=== PATIENT | female | born 1960 | race Caucasian/White ===

== ENCOUNTER 2017-09-25 18:17 | Observation (INO) | payer MEDICARE, OTHER ==
[2017-09-25 20:08] LABS: ABSOLUTE BASOPHILS # (AUTO) 0.1 10^3/uL (0.0-0.2); ABSOLUTE EOSINOPHILS # (AUTO) 0.1 10^3/uL (0.0-0.6); ABSOLUTE LYMPHOCYTES (AUTO) 2.2 10^3/uL (0.5-4.7); ABSOLUTE MONOCYTES (AUTO) 0.7 10^3/uL (0.1-1.4); ABSOLUTE NEUT (AUTO) 4.9 10^3/uL (1.7-8.2); BASOPHILS % (AUTO) 0.7 % (0-2); EOSINOPHILS % (AUTO) 1.3 % (0-6); HEMATOCRIT 35.5 % (36.0-47.0); HEMOGLOBIN 11.9 g/dL (12.0-15.5); LYMPHOCYTES % (AUTO) 27.6 % (13-45); MEAN CORPUSCULAR HEMOGLOBIN 28.4 pg (27.0-33.4); MEAN CORPUSCULAR HGB CONC 33.5 g/dL (32.0-36.0); MEAN CORPUSCULAR VOLUME 85 fl (80-97); MONOCYTES % (AUTO) 8.7 % (3-13); PLATELET COUNT 374 10^3/uL (150-450); RED CELL DISTRIBUTION WIDTH 13.7 % (11.5-14.0); SEGMENTED NEUTROPHILS % (AUTO) 61.7 % (42-78); TOTAL CELLS COUNTED % (AUTO) 100 %; WHITE BLOOD COUNT 7.9 10^3/uL (4.0-10.5)
[2017-09-25] MEDS ORDERED: NORMAL SALINE 1000 ML 1,000 ML IV ONE (20:25)
[2017-09-25] MEDS ORDERED: METOCLOPRAMIDE HCL INJ/PF 10 MG/2 ML SDV IV ONE (20:25)
[2017-09-25] MEDS ORDERED: KETOROLAC TROMETHAMINE INJ/PF 30 MG/1 ML SDV IV ONE (20:25)
--- NOTE | 2017-09-25 20:30 | ER Document Report ---
ED General - General Chief Complaint: Nausea/Vomiting/Diarrhea Stated Complaint: NAUSEA/VOMITING/DIARRHEA Time Seen by Provider: 09/25/17 20:03 Mode of Arrival: Ambulatory Information source: Patient Notes: Patient is a 57-year-old female who presents to the emergency department with chief complaint of abdominal pain, vomiting and diarrhea that started this morning. Patient reports the pain started in the umbilical area and radiates to the right upper and lower quadrant as well as her right flank and right lumbar region. Patient reports that her diarrhea is clear liquid at this time. Patient unsure if she has had blood in her urine and feels like she may have had a fever although she is unsure. Medical history significant for gastric bypass 3 years ago, intussusception a few months ago, kidney stones, diverticulosis, GERD and endometriosis. TRAVEL OUTSIDE OF THE [place] IN LAST 30 DAYS: No - Related Data Allergies/Adverse Reactions: iodine [Iodine] Allergy (Verified 09/25/17 18:19) Penicillins Allergy (Verified 09/25/17 18:19) Sulfa (Sulfonamide Antibiotics) Allergy (Verified 09/25/17 18:19) Past Medical History - General Information source: Patient - Social History Smoking Status: Former Smoker Frequency of alcohol use: None Drug Abuse: None Family History: Reviewed & Not Pertinent Renal/ Medical History: Reports: Hx Kidney Stones GI Medical History: Reports: Other - Intussusception Past Surgical History: Reports: Hx Abdominal Surgery - Gastric bypass, intussusception repair - Immunizations Hx Diphtheria, Pertussis, Tetanus Vaccination: No Review of Systems - Review of Systems Constitutional: No symptoms reported EENT: No symptoms reported Cardiovascular: No symptoms reported Respiratory: No symptoms reported Gastrointestinal: See HPI Genitourinary: No symptoms reported Female Genitourinary: No symptoms reported Musculoskeletal: No symptoms reported Skin: No symptoms reported Hematologic/Lymphatic: No symptoms reported Neurological/Psychological: No symptoms reported Physical Exam - Vital signs Vitals: Temp Pulse Resp BP Pulse Ox 98.7 F 78 14 160/87 H 97 09/25/17 18:23 09/25/17 18:23 09/25/17 18:23 09/25/17 18:23 09/25/17 18:23 - Notes Notes: PHYSICAL EXAMINATION: GENERAL: Well-appearing, well-nourished and in no acute distress. HEAD: Atraumatic, normocephalic. EYES: Pupils equal round and reactive to light, extraocular movements intact, conjunctiva are normal. ENT: Nares patent, oropharynx clear without exudates. Moist mucous membranes. NECK: Normal range of motion, supple without lymphadenopathy LUNGS: Breath sounds clear to auscultation bilaterally and equal. No wheezes rales or rhonchi. HEART: Regular rate and rhythm without murmurs ABDOMEN: Soft, nondistended abdomen. No redness to palpation to right upper and lower quadrant, umbilical area. Right-sided CVA tenderness present. No rebound. No masses appreciated. Female : deferred Musculoskeletal: Normal range of motion, no pitting or edema. No cyanosis. NEUROLOGICAL: Cranial nerves grossly intact. Normal speech, normal gait. Normal sensory, motor exams PSYCH: Normal mood, normal affect. SKIN: Warm, Dry, normal turgor, no rashes or lesions noted. Course - Re-evaluation Re-evalutation: CBC unremarkable CMP also unremarkable. Urinalysis does not show any signs of infection. Given patient's level of pain as well as significant medical history , will send for a CT with IV contrast of the abdomen and pelvis. Patient reports she cannot tolerate p.o. contrast due to her gastric bypass. CT abdomen pelvis with IV contrast reveals possible appendicitis, will consult surgery. Patient's vital signs remained stable patient is not requesting anything additional for her pain at this time. 09/26/17 00:[address] Sanchez, surgeon regarding results of CAT scan, he will come see patient in the emergency department. Patient is n.p.o. at this time. - Vital Signs Vital signs: Temp Pulse Resp BP Pulse Ox 98.7 F 78 17 141/77 H 94 09/25/17 18:23 09/25/17 18:23 09/26/17 05:00 09/26/17 04:31 09/26/17 05:00 - Laboratory Result Diagrams: 09/25/17 19:57 09/25/17 19:57 Laboratory results interpreted by me: 09/25/17 09/25/17 09/25/17 19:57 19:57 19:57 Hgb 11.9 L Hct 35.5 L Alkaline Phosphatase 128 H Urine Protein 30 H Ur Leukocyte Esterase SMALL H Discharge - Discharge Clinical Impression: Abdominal pain Qualifiers: Abdominal location: lower abdomen, unspecified Qualified Code(s): R10.30 - Lower abdominal pain, unspecified Condition: Stable Disposition: ADMITTED OBSERVATION Admitting Provider: Surgicalist Unit Admitted: Medical Floor
[2017-09-25 20:38] LABS: ALANINE AMINOTRANSFERASE 27 U/L (9-52); ALKALINE PHOSPHATASE 128 U/L (38-126); ANION GAP 13 (5-19); ASPARTATE AMINO TRANSFERASE 16 U/L (14-36); BILIRUBIN,DIRECT 0.2 mg/dL (0.0-0.4); BILIRUBIN,TOTAL 0.4 mg/dL (0.2-1.3); BLOOD UREA NITROGEN 13 mg/dL (7-20); CALCIUM 9.1 mg/dL (8.4-10.2); CARBON DIOXIDE 22 mmol/L (22-30); CHLORIDE 107 mmol/L (98-107); GLUCOSE 94 mg/dL (75-110); LIPASE 68.9 U/L (23-300); POTASSIUM 4.4 mmol/L (3.6-5.0); SODIUM 141.6 mmol/L (137-145); TOTAL PROTEIN 6.8 g/dL (6.3-8.2)
[2017-09-25 21:29] LABS: APPEARANCE,URINE TURBID; BILIRUBIN,URINE NEGATIVE (NEGATIVE); CALCIUM OXALATE CRYSTALS,URINE MANY /HPF; COLOR,URINE YELLOW; GLUCOSE, URINE NEGATIVE (NEGATIVE); KETONES,URINE NEGATIVE (NEGATIVE); LEUKOCYTE ESTERASE,URINE SMALL (NEGATIVE); NITRITE,URINE NEGATIVE (NEGATIVE); PROTEIN,URINE 30 mg/dL (NEGATIVE); UROBILINOGEN,URINE NEGATIVE mg/dL (<2.0)
--- NOTE | 2017-09-25 23:57 | RADIOLOGY REPORT (SQ) ---
EXAM DESCRIPTION: CT ABDOMEN PELVIS WITH IV CONTRAST COMPLETED DATE/TME: 09/25/2017 21:12 CLINICAL HISTORY: 57 years, Female, right abd pain, hx of intusseption COMPARISON: 06/28/2013 TECHNIQUE: Contiguous axial images of the abdomen and pelvis were obtained after the administration of intravenous contrast followed by reconstruction images.This exam was performed according to our departmental dose-optimization program, which includes automated exposure control, adjustment of the mA and/or kV according to patient size and/or use of iterative reconstruction technique. FINDINGS: There are postoperative changes. There is colonic diverticulosis. The appendix is enlarged at 9 mm diameter. This is larger than it was previously, when it appeared normal. There is slight soft tissue stranding surrounding the appendix but no periappendiceal fluid. No evidence of perforation or appendicolith. There is slight soft tissue stranding of the fat surrounding the pancreatic head. Mild inflammation is possible. Clinical correlation will be helpful. There is a nonobstructive 3 mm left renal stone. No other acute abnormality. The liver, spleen, pancreas and kidneys are otherwise within normal limits. There is no hydronephrosis. The gallbladder is unremarkable. Adrenal glands are within normal limits. Aorta is normal in caliber and tapering. No significant free fluid. No free air. No bowel obstruction. There is no other stranding of the mesenteric fat. IMPRESSION: Findings are most consistent with early appendicitis but clinical correlation will be very helpful. Possible inflammation of the pancreatic head. No other definite acute abnormality.
[2017-09-26] MEDS ORDERED: METRONIDAZOLE 500 MG/NS RTU 500 MG/100 ML RTUPB IV ONE (01:15)
[2017-09-26] MEDS ORDERED: LEVOFLOXACIN 750 MG/D5W RTU 750 MG/150 ML RTUPB IV ONE (01:15)
[2017-09-26] MEDS ORDERED: NORMAL SALINE 1000 ML 1,000 ML IV ONE (01:18)
[2017-09-26] MEDS ORDERED: MORPHINE SULFATE 10 MG/ML INJ IV ONE ×2 (01:19→06:13)
[2017-09-26] MEDS ORDERED: POTASSI CL 20 MEQ/D5-1/2NS 1L 1,000 ML IV PRN (02:19)
[2017-09-26] MEDS ORDERED: ONDANSETRON HCL INJ/PF 4 MG/2 ML SDV IV PRN (02:19)
--- NOTE | 2017-09-26 02:39 | PDOC H&P ---
History of Present Illness Patient complains of: Heartburn, abdominal pain (right upper quadrant, right lower quadrant, left upper quadrant), diarrhea. History of Present Illness: LILLIE NUNEZ is a 57 year old female with a long and complicated surgical history. She reports a one-day history of heartburn, right upper quadrant pain , left upper quadrant pain, and right lower quadrant pain. Her pain is crampy and episodic. She has had multiple episodes of diarrhea today. It is loose and watery. Patient has a history of remote Nirav fundoplication, with conversion to a Meghana-en-Y gastric bypass 3 years ago at [facility]. She has a more recent history of small bowel intussusception, requiring resection and anastomosis. The patient struggles with constipation and abdominal pain, however this feels completely different to her. Her pain began in her epigastrium and feels like a pulling sensation. She reports that it is extending from her epigastrium to her umbilicus, up into her right upper quadrant, and down into her right lower quadrant. She also reports pain in her left upper quadrant. She reports that at times it feels like "she is having a heart attack". She denies fevers, chills, shortness of breath. Nothing makes her pain better or worse. Past Medical History Neurological Medical History: Reports: Other - AV malformation of the brain GI Medical History: Reports: Other - Intussusception, gastric bypass Past Surgical History Past Surgical History: Reports: Tubal Ligation, Other - Gastric bypass, small bowel resection for intussusception Social History Information Source: Patient Smoking Status: Former Smoker Frequency of Alcohol Use: None Hx Recreational Drug Use: No Family History Family History: Reviewed & Not Pertinent Parental Family History Reviewed: Yes Children Family History Reviewed: Yes Sibling(s) Family History Reviewed.: Yes Medication/Allergy Home Medications: Ciprofloxacin HCl [Cipro 500 mg Tablet] 500 mg PO BID #14 tablet 06/28/13 Metronidazole [Flagyl 500 mg Tablet] 500 mg PO TID #21 tablet 06/28/13 Oxycodone HCl [Oxy-Ir 5 mg Tablet] 5 mg PO Q6 PRN #20 tablet 06/28/13 Allergies/Adverse Reactions: iodine [Iodine] Allergy (Verified 09/25/17 18:19) Penicillins Allergy (Verified 09/25/17 18:19) Sulfa (Sulfonamide Antibiotics) Allergy (Verified 09/25/17 18:19) Review of Systems Constitutional: ABSENT: chills, fatigue, fever(s), weakness Eyes: ABSENT: visual disturbances Ears: ABSENT: hearing changes Nose, Mouth, and Throat: ABSENT: sore throat Cardiovascular: ABSENT: chest pain Respiratory: ABSENT: cough, dyspnea Gastrointestinal: PRESENT: abdominal pain, heartburn, nausea, vomiting Genitourinary: ABSENT: dysuria Musculoskeletal: PRESENT: back pain Integumentary: ABSENT: pruritus, rash Neurological: ABSENT: dizziness, memory loss, numbness, tremor(s) Psychiatric: ABSENT: anxiety, depression Endocrine: ABSENT: cold intolerance, heat intolerance Hematologic/Lymphatic: ABSENT: easy bleeding, easy bruising Physical Exam Vital Signs: Temp Pulse Resp BP Pulse Ox 98.7 F 78 14 160/87 H 97 09/25/17 18:23 09/25/17 18:23 09/25/17 18:23 09/25/17 18:23 09/25/17 18:23 Intake & Output 09/24/17 09/25/17 09/26/17 06:59 06:59 06:59 Weight 80.6 kg General appearance: PRESENT: no acute distress Head exam: PRESENT: atraumatic, normocephalic Eye exam: PRESENT: EOMI, PERRLA. ABSENT: scleral icterus Mouth exam: PRESENT: moist, neck supple Neck exam: ABSENT: lymphadenopathy, meningismus, tenderness, thyromegaly, tracheal deviation Respiratory exam: PRESENT: clear to auscultation riccardo. ABSENT: chest wall tenderness Cardiovascular exam: PRESENT: RRR Pulses: PRESENT: normal radial pulses Vascular exam: PRESENT: normal capillary refill. ABSENT: pallor GI/Abdominal exam: PRESENT: soft, tenderness. ABSENT: distended, firm, guarding Extremities exam: ABSENT: clubbing Musculoskeletal exam: ABSENT: deformity Neurological exam: PRESENT: alert, awake, oriented to person, oriented to place , oriented to time, oriented to situation, CN II-XII grossly intact. ABSENT: motor sensory deficit Psychiatric exam: ABSENT: agitated, anxious, depressed Skin exam: ABSENT: cyanosis, erythema, jaundice Results Laboratory Results: 09/25/17 19:57 09/25/17 19:57 09/25/17 09/25/17 09/25/17 19:57 19:57 19:57 WBC 7.9 RBC 4.20 Hgb 11.9 L Hct 35.5 L MCV 85 MCH 28.4 MCHC 33.5 RDW 13.7 Plt Count 374 Seg Neutrophils % 61.7 Lymphocytes % 27.6 Monocytes % 8.7 Eosinophils % 1.3 Basophils % 0.7 Absolute Neutrophils 4.9 Absolute Lymphocytes 2.2 Absolute Monocytes 0.7 Absolute Eosinophils 0.1 Absolute Basophils 0.1 Sodium 141.6 Potassium 4.4 Chloride 107 Carbon Dioxide 22 Anion Gap 13 BUN 13 Creatinine 0.59 Est GFR ( Amer) > 60 Est GFR (Non-Af Amer) > 60 Glucose 94 Calcium 9.1 Total Bilirubin 0.4 AST 16 ALT 27 Alkaline Phosphatase 128 H Total Protein 6.8 Albumin 4.0 Lipase 68.9 Urine Color YELLOW Urine Appearance TURBID Urine pH 5.0 Ur Specific [place] 1.030 Urine Protein 30 H Urine Glucose (UA) NEGATIVE Urine Ketones NEGATIVE Urine Blood NEGATIVE Urine Nitrite NEGATIVE Ur Leukocyte Esterase SMALL H Urine WBC (Auto) 18 Urine RBC (Auto) 2 Impressions: Abdomen/Pelvis CT 09/25/17 21:12 IMPRESSION: Findings are most consistent with early appendicitis but clinical correlation will be very helpful. Possible inflammation of the pancreatic head. No other definite acute abnormality. Assessment & Plan - Diagnosis (1) Abdominal pain Qualifiers: Abdominal location: lower abdomen, unspecified Qualified Code(s): R10.30 - Lower abdominal pain, unspecified Is this a current diagnosis for this admission?: Yes (2) Diarrhea Qualifiers: Diarrhea type: unspecified type Qualified Code(s): R19.7 - Diarrhea, unspecified Is this a current diagnosis for this admission?: Yes - Plan Summary Plan Summary: This is a 57-year-old female with a complicated surgical history. The patient presents to the emergency department with abdominal pain that appears to be wandering around the abdomen, diarrhea, and heartburn. The patient's white blood cell count and differential are completely normal. I have reviewed the patient's CT scan, and I am unimpressed with the appendix. There are no obvious signs of obstruction or internal hernia. Have recommended observation for the patient with a repeat CBC and differential in 12 hours. I will check a right upper quadrant ultrasound to assess for gallstones. I will follow her abdominal exam very closely. If signs of appendicitis do present, she may require surgical intervention.
--- NOTE | 2017-09-26 08:57 | RADIOLOGY REPORT (SQ) ---
EXAM DESCRIPTION: U/S ABDOMEN LIMITED W/O DOP COMPLETED DATE/TIME: 09/26/2017 6:59 am REASON FOR STUDY: abdominal pain R10.84 GENERALIZED ABDOMINAL PAIN COMPARISON: None. TECHNIQUE: Dynamic and static grayscale images acquired of the abdomen and recorded on PACS. Additio nal selected color Doppler and spectral images recorded. LIMITATIONS: None. FINDINGS: PANCREAS: No masses. Visualized pancreatic duct normal caliber. LIVER: No masses. Echotexture normal. LIVER VASCULATURE: Normal directional flow of the main portal vein and hepatic veins. GALLBLADDER: No stones. Normal wall thickness. No pericholecystic fluid. ULTRASOUND-DETECTED QUEZADA'S SIGN: Negative. INTRAHEPATIC DUCTS AND COMMON DUCT: CBD and intrahepatic ducts normal caliber. No filling defects. INFERIOR VENA CAVA: Normal flow. AORTA: No aneurysm. RIGHT KIDNEY: Normal size. Normal echogenicity. No solid or suspicious masses. No hydronephrosis. No calcifications. PERITONEAL AND RIGHT PLEURAL SPACE: No ascites or effusions. OTHER: No other significant findings. IMPRESSION: NORMAL RIGHT UPPER QUADRANT ULTRASOUND. TECHNICAL DOCUMENTATION: JOB ID: [id number] 1902[employer]- All Rights Reserved Reading location - IP/workstation name: [email or web address]
[2017-09-26] MEDS ORDERED: FAMOTIDINE INJ/PF 20 MG/2 ML SDV IV SCH (10:00)
[2017-09-26 13:24] LABS: ABSOLUTE EOSINOPHILS # (AUTO) 0.1 10^3/uL (0.0-0.6); ABSOLUTE LYMPHOCYTES (AUTO) 1.6 10^3/uL (0.5-4.7); ABSOLUTE MONOCYTES (AUTO) 0.6 10^3/uL (0.1-1.4); ABSOLUTE NEUT (AUTO) 2.7 10^3/uL (1.7-8.2); BASOPHILS % (AUTO) 0.4 % (0-2); EOSINOPHILS % (AUTO) 1.6 % (0-6); HEMATOCRIT 30.6 % (36.0-47.0); HEMOGLOBIN 10.2 g/dL (12.0-15.5); LYMPHOCYTES % (AUTO) 32.9 % (13-45); MEAN CORPUSCULAR HEMOGLOBIN 28.5 pg (27.0-33.4); MEAN CORPUSCULAR HGB CONC 33.3 g/dL (32.0-36.0); MEAN CORPUSCULAR VOLUME 86 fl (80-97); MONOCYTES % (AUTO) 11.2 % (3-13); PLATELET COUNT 303 10^3/uL (150-450); RED BLOOD COUNT 3.58 10^6/uL (3.72-5.28); RED CELL DISTRIBUTION WIDTH 13.6 % (11.5-14.0); SEGMENTED NEUTROPHILS % (AUTO) 53.9 % (42-78); TOTAL CELLS COUNTED % (AUTO) 100 %
[2017-09-26 13:27] LABS: ALANINE AMINOTRANSFERASE 15 U/L (9-52); ALBUMIN 3.2 g/dL (3.5-5.0); ALKALINE PHOSPHATASE 104 U/L (38-126); ANION GAP 9 (5-19); ASPARTATE AMINO TRANSFERASE 13 U/L (14-36); BILIRUBIN,DIRECT 0.2 mg/dL (0.0-0.4); BILIRUBIN,TOTAL 0.3 mg/dL (0.2-1.3); BLOOD UREA NITROGEN 8 mg/dL (7-20); CALCIUM 8.6 mg/dL (8.4-10.2); CARBON DIOXIDE 24 mmol/L (22-30); CHLORIDE 108 mmol/L (98-107); GLUCOSE 94 mg/dL (75-110); SODIUM 141.3 mmol/L (137-145); TOTAL PROTEIN 5.7 g/dL (6.3-8.2)
[2017-09-26] MEDS ORDERED: LORAZEPAM INJ 2 MG/1 ML VIAL IV ONE (14:00)
--- NOTE | 2017-09-26 14:14 | PDOC PROGRESS REPORT ---
Subjective Progress Note for:: 09/26/17 Subjective:: Feels much better. Abdominal pain is markedly improved. Patient is hungry. No further diarrhea. Reason For Visit: ABDOMINAL PAIN,DIARRHEA Physical Exam Vital Signs: Temp Pulse Resp BP Pulse Ox 97.6 F 67 16 167/86 H 99 09/26/17 12:40 09/26/17 12:40 09/26/17 12:40 09/26/17 12:40 09/26/17 12:40 Intake & Output 09/25/17 09/26/17 09/27/17 06:59 06:59 06:59 Weight 84 kg General appearance: PRESENT: no acute distress, cooperative Respiratory exam: PRESENT: clear to auscultation riccardo Cardiovascular exam: PRESENT: RRR GI/Abdominal exam: PRESENT: other - Soft, nondistended, nontender to palpation. Results Laboratory Results: 09/26/17 11:56 09/26/17 11:56 09/26/17 09/26/17 11:56 11:56 WBC 5.0 RBC 3.58 L Hgb 10.2 L Hct 30.6 L MCV 86 MCH 28.5 MCHC 33.3 RDW 13.6 Plt Count 303 Seg Neutrophils % 53.9 Lymphocytes % 32.9 Monocytes % 11.2 Eosinophils % 1.6 Basophils % 0.4 Absolute Neutrophils 2.7 Absolute Lymphocytes 1.6 Absolute Monocytes 0.6 Absolute Eosinophils 0.1 Absolute Basophils 0.0 Sodium 141.3 Potassium 4.0 Chloride 108 H Carbon Dioxide 24 Anion Gap 9 BUN 8 Creatinine 0.57 Est GFR ( Amer) > 60 Est GFR (Non-Af Amer) > 60 Glucose 94 Calcium 8.6 Total Bilirubin 0.3 AST 13 L ALT 15 Alkaline Phosphatase 104 Total Protein 5.7 L Albumin 3.2 L Impressions: Abdomen/Pelvis CT 09/25/17 21:12 IMPRESSION: Findings are most consistent with early appendicitis but clinical correlation will be very helpful. Possible inflammation of the pancreatic head. No other definite acute abnormality. Abdomen Ultrasound 09/26/17 00:00 IMPRESSION: NORMAL RIGHT UPPER QUADRANT ULTRASOUND. Assessment & Plan - Diagnosis (1) Abdominal pain Qualifiers: Abdominal location: lower abdomen, unspecified Qualified Code(s): R10.30 - Lower abdominal pain, unspecified Is this a current diagnosis for this admission?: Yes Plan: Much improved overnight. I have reviewed the CT scan with our radiologist this morning and we both do not feel that the findings are consistent with appendicitis. There is air in the lumen of the appendix all the way out to the tip with no inflammatory changes. It is borderline enlarged. With her clinical improvement and no tenderness by current exam and no leukocytosis I think appendicitis is effectively ruled out. I will start clear liquid diet and will advance as tolerated. If patient continues to do well will plan to discharge patient home.
[2017-09-26 15:49] VITALS: BP 145/82
--- NOTE | 2017-09-26 19:25 | DISCHARGE SUMMARY E ---
Discharge Summary NAME: LILLIE NUNEZ : 1960 AGE: 57Y ADMITTED: 09/26/2017 DISCHARGED: 09/26/2017 FINAL DIAGNOSES: 1. ABDOMINAL PAIN. 2. DIARRHEAL ILLNESS. HOSPITAL COURSE: The patient was managed conservatively. She had improvement of her abdominal pain. She had resolution of her diarrhea. She was tolerating a diet well at the time of discharge, and was feeling much better with no tenderness on exam. On review of her CT scan with Radiology this morning, the radiologist felt that the appendix did not appear inflamed. He did not think it represented early appendicitis. He did not see any abnormalities at the pancreatic head. He disagreed with the nighttime reading of her films. The patient was placed on a diet which she tolerated very well. She was feeling quite well at the time of discharge with resolution of her diarrhea and minimal abdominal discomfort with no tenderness at the time of discharge. The patient has now been discharged to home in good condition. She will follow up on an as needed basis. She is to call us for any problems. She is encouraged to stay active and stay well hydrated at home. She may resume her home medications. DICTATING PHYSICIAN: JONATHAN GATES M.D. [id number] PHY#: [id number] ID: [id number] JOB#: [id number] ACCT: [id number] cc:Shima KEY MD, M.D. [facility],
== END 2017-09-26 19:42 | disposition home or self-care (01) ==
LOC: ER 18:17 → EH 09-26 03:08 → 4N 09-26 12:37
DX: R10.31 Right lower quadrant pain (principal); R10.11 Right upper quadrant pain; R10.12 Left upper quadrant pain; R10.9 Unspecified abdominal pain; R19.7 Diarrhea, unspecified; K59.00 Constipation, unspecified; R11.2 Nausea with vomiting, unspecified; M54.9 Dorsalgia, unspecified; R12 Heartburn; Z90.49 Acquired absence of other specified parts of digestive tract; Z98.84 Bariatric surgery status; Z98.51 Tubal ligation status; Z87.891 Personal history of nicotine dependence; Z87.42 Personal history of other diseases of the female genital tract; Z87.442 Personal history of urinary calculi; Z98.890 Other specified postprocedural states
CPT/HCPCS: 96376; 99285; 96361; 96375; 96365; 96366; 96367; 96368; 36415 ×2; 87040; 83690; 85025 ×2; 80053 ×2; 81001; 76705; 74177; G0378 ×2; J1885; J2765; J2270; J2060; J3480; J2405; J7030 ×2; S0028; J1956